=== PATIENT | female | born 1955 ===

== ENCOUNTER 2019-02-24 13:08 | Emergency (ER) | payer MEDICARE, OTHER | END 2019-02-24 13:22 | disposition left against medical advice (07) | LOC: UCCORT 13:08 | DX: S69.92XA Unspecified injury of left wrist, hand and finger(s), initial encounter (principal); S89.90XA Unspecified injury of unspecified lower leg, initial encounter; Z53.21 Procedure and treatment not carried out due to patient leaving prior to being seen by health care provider ==